=== PATIENT | male | born 1940 | race American Indian/Alaskan Native ===

== ENCOUNTER 2016-09-09 21:11 | Inpatient (IN) | payer MEDICARE ==
--- NOTE | 2016-09-09 22:19 | EDM.PDOC ---
ED HPI GENERAL MEDICAL PROBLEM - General Chief Complaint: Gastrointestinal Problem Stated Complaint: [facility] Time Seen by Provider: 09/09/16 21:41 Source of Information: Reports: Patient, RN Notes Reviewed History Limitations: Reports: No Limitations - History of Present Illness INITIAL COMMENTS - FREE TEXT/NARRATIVE: 76-year-old gentleman presents emergency department today with bright red blood per rectum as well as black tarry stools he states today is the first days of her had an event like this was scheduled to have a screening colonoscopy but never got that done denies any other symptoms denies pain Pain Score (Numeric/FACES): 0 - Related Data Allergies Allergy/AdvReac Type Severity Reaction Status Date / Time Penicillins Allergy Swelling Verified 09/09/16 21:25 Home Meds: Home Meds . [Unable to Verify Home Med List] 09/09/16 [History] Past Medical History HEENT History: Reports: Impaired Vision Cardiovascular History: Reports: Heart Failure Neurological History: Reports: Neuropathy, Diabetic Endocrine/Metabolic History: Reports: Diabetes, Type II - Infectious Disease History Infectious Disease History: Reports: Chicken Pox - Past Surgical History HEENT Surgical History: Reports: None Cardiovascular Surgical History: Reports: Coronary Artery Bypass, Valve Replacement Musculoskeletal Surgical History: Reports: Knee Replacement, Other (See Below) Other Musculoskeletal Surgeries/Procedures:: bilateral knee replacement Social & Family History - Tobacco Use Smoking Status *Q: Current Every Day Smoker Years of Tobacco use: 45 Packs/Tins Daily: 1.5 - Caffeine Use Caffeine Use: Reports: Coffee - Recreational Drug Use Recreational Drug Use: No ED ROS GENERAL - Review of Systems Review Of Systems: See Below Constitutional: Reports: No Symptoms HEENT: Reports: No Symptoms Respiratory: Reports: No Symptoms Cardiovascular: Reports: No Symptoms GI/Abdominal: Reports: Black Stool, Bloody Stool. Denies: Abdominal Pain, Nausea, Vomiting : Reports: No Symptoms Musculoskeletal: Reports: No Symptoms ED EXAM, GI/ABD - Physical Exam Exam: See Below Exam Limited By: No Limitations General Appearance: Alert, WD/WN, No Apparent Distress Throat/Mouth: Normal Oropharynx, No Airway Compromise Head: Atraumatic, Normocephalic Neck: Normal Inspection, Supple, Non-Tender, Full Range of Motion Respiratory/Chest: No Respiratory Distress, Lungs Clear, Normal Breath Sounds, No Accessory Muscle Use Cardiovascular: Regular Rate, Rhythm, No Murmur GI/Abdominal: Soft, Non-Tender Rectal (Males) Exam: Normal Exam, Prostate Normal, Black Stool, Heme + Stool. No: Hemorrhoids Course - Vital Signs Last Recorded V/S: Last Vital Signs Temp 97.7 F 09/09/16 21:14 Pulse 61 09/09/16 22:34 Resp 22 H 09/09/16 22:34 BP 145/64 H 09/09/16 22:34 Pulse Ox 91 L 09/09/16 22:34 - Orders/Labs/Meds Orders: Active Orders 24 hr Category Date Time Status Peripheral IV Care [RC] . DIRECTED Care 09/09/16 22:28 Active Pantoprazole [ProTONIX IV] 80 mg Med 09/09/16 22:30 Active Sodium Chloride 0.9% [Normal Saline] 100 ml IV .Continuous Sodium Chloride 0.9% [Saline Flush] Med 09/09/16 22:27 Active 10 ml FLUSH ASDIRECTED PRN Peripheral IV Insertion Adult [OM.PC] Urgent Oth 09/09/16 22:27 Ordered Medication Orders Pantoprazole Sodium 80 mg/ (Sodium Chloride) 100 mls @ 10 mls/hr IV .Continuous TAYLER Last Admin: 09/09/16 23:06 Dose: 10 mls/hr Sodium Chloride (Saline Flush) 10 ml FLUSH ASDIRECTED PRN PRN Reason: Keep Vein Open Last Admin: 09/09/16 23:05 Dose: 10 ml Labs: Laboratory Tests 09/09/16 09/09/16 09/09/16 Range/Units 22:40 22:40 22:40 WBC 7.9 (4.5-11.0) K/uL RBC 5.18 (4.30-5.90) M/uL Hgb 15.6 H (12.0-15.0) g/dL Hct 47.9 (40.0-54.0) % MCV 93 (80-98) fL MCH 30 (27-31) pg MCHC 33 (32-36) % Plt Count 207 (150-400) K/uL Neut % (Auto) 70 H (36-66) % Lymph % (Auto) 17 L (24-44) % [place] % (Auto) 10 H (2-6) % Eos % (Auto) 4 (2-4) % Baso % (Auto) 1 (0-1) % PT 46.8 H (9.5-12.0) sec INR 4.12 H* (0.80-1.20) Sodium 134 L (140-148) mmol/L Potassium 4.8 (3.6-5.2) mmol/L Chloride 100 (100-108) mmol/L Carbon Dioxide 32 (21-32) mmol/L Anion Gap 6.8 (5.0-14.0) mmol/L BUN 22 H (7-18) mg/dL Creatinine 1.5 H (0.8-1.3) mg/dL Est Cr Clr Drug Dosing 44.62 mL/min Estimated GFR (MDRD) 46 L (>60) Glucose 187 H (74-106) mg/dL Lactic Acid (0.4-2.0) mmol/L Calcium 7.9 L (8.5-10.1) mg/dL Total Bilirubin 0.5 (0.2-1.0) mg/dL AST 17 (15-37) U/L ALT 15 (12-78) U/L Alkaline Phosphatase 139 H (46-116) U/L Total Protein 7.2 (6.4-8.2) g/dL Albumin 2.8 L (3.4-5.0) g/dL Globulin 4.4 H (2.3-3.5) g/dL Albumin/Globulin Ratio 0.6 L (1.2-2.2) // Range/Units 22:40 WBC (4.5-11.0) K/uL RBC (4.30-5.90) M/uL Hgb (12.0-15.0) g/dL Hct (40.0-54.0) % MCV (80-98) fL MCH (27-31) pg MCHC (32-36) % Plt Count (150-400) K/uL Neut % (Auto) (36-66) % Lymph % (Auto) (24-44) % [place] % (Auto) (2-6) % Eos % (Auto) (2-4) % Baso % (Auto) (0-1) % PT (9.5-12.0) sec INR (0.80-1.20) Sodium (140-148) mmol/L Potassium (3.6-5.2) mmol/L Chloride (100-108) mmol/L Carbon Dioxide (21-32) mmol/L Anion Gap (5.0-14.0) mmol/L BUN (7-18) mg/dL Creatinine (0.8-1.3) mg/dL Est Cr Clr Drug Dosing mL/min Estimated GFR (MDRD) (>60) Glucose (74-106) mg/dL Lactic Acid 1.0 (0.4-2.0) mmol/L Calcium (8.5-10.1) mg/dL Total Bilirubin (0.2-1.0) mg/dL AST (15-37) U/L ALT (12-78) U/L Alkaline Phosphatase (46-116) U/L Total Protein (6.4-8.2) g/dL Albumin (3.4-5.0) g/dL Globulin (2.3-3.5) g/dL Albumin/Globulin Ratio (1.2-2.2) Meds: Medications Generic Name Dose Route Start Last Admin Trade Name Freq PRN Reason Stop Dose Admin Pantoprazole Sodium 80 mg/ 100 mls @ 10 mls/hr 09/09/16 22:30 09/09/16 23:06 Sodium Chloride IV 10 mls/hr .Continuous TAYLER Administration Sodium Chloride 10 ml 09/09/16 22:27 09/09/16 23:05 Saline Flush FLUSH 10 ml ASDIRECTED PRN Administration Keep Vein Open Discontinued Medications Generic Name Dose Route Start Last Admin Trade Name Freq PRN Reason Stop Dose Admin Hydrocodone Bitart/Acetaminophen 1 tab 09/09/16 23:37 [place] 325-5 Mg PO 09/09/16 23:38 ONETIME ONE Pantoprazole Sodium 40 mg 09/09/16 22:25 09/09/16 22:43 Protonix Iv IVPUSH 09/09/16 22:26 40 mg ONETIME ONE Administration Departure - Departure Time of Disposition: 23:44 Disposition: Admitted As Inpatient 66 Condition: Fair Clinical Impression: Gastrointestinal bleeding Qualifiers: GI bleed type/associated pathology: unspecified gastrointestinal hemorrhage type Qualified Code(s): K92.2 - Gastrointestinal hemorrhage, unspecified - Discharge Information Forms: ED Department Discharge - My Orders Last 24 Hours: My Active Orders 09/09/16 22:27 Sodium Chloride 0.9% [Saline Flush] 10 ml FLUSH ASDIRECTED PRN Peripheral IV Insertion Adult [OM.PC] Urgent 09/09/16 22:28 Peripheral IV Care [RC] . DIRECTED 09/09/16 22:30 Pantoprazole [ProTONIX IV] 80 mg Sodium Chloride 0.9% [Normal Saline] 100 ml IV .Continuous - Assessment/Plan Last 24 Hours: My Active Orders 09/09/16 22:27 Sodium Chloride 0.9% [Saline Flush] 10 ml FLUSH ASDIRECTED PRN Peripheral IV Insertion Adult [OM.PC] Urgent 09/09/16 22:28 Peripheral IV Care [RC] . DIRECTED 09/09/16 22:30 Pantoprazole [ProTONIX IV] 80 mg Sodium Chloride 0.9% [Normal Saline] 100 ml IV .Continuous Plan: Assessment Acuity = acute Site and laterality = GI bleed both black tarry stools and bright red blood complicated patient with known history of congestive heart failure, AV valve replacement on chronic anticoagulation and diabetes mellitus type 2 Etiology = supratherapeutic INR probably contributing to the cause Manifestations = none Location of injury = Home Lab values = hemoglobin stable at 15.6 INR supratherapeutic at 4.12 sodium low at 134 consistent hyponatremia creatinine elevated at 1.5 consistent chronic renal failure stage G IIIB albumin low at 2.8 consistent hypoalbuminemia Plan Discussed the case with Dr. Sauer admitting physician on-call he agreed to come and evaluate the patient in the hospital Patient was in agreement with the plan all questions were answered, they were instructed to return to the emergency department or call for worsening symptoms. This note was dictated using [employer] voice recognition software please call with any questions.
[2016-09-09] MEDS ORDERED: Pantoprazole 40 MG Vial IVPUSH ONE (22:25)
[2016-09-09] MEDS ORDERED: Sodium Chloride 0.9% 10 ML Syringe FLUSH PRN (22:27)
[2016-09-09] MEDS ORDERED: Pantoprazole 80 MG in Sodium Chloride 0.9% 100 ML IV SCH (22:30)
[2016-09-09] MEDS ORDERED: Acetaminophen/HYDROcodone 325-5 MG Tab PO ONE (23:37)
[2016-09-10] MEDS ORDERED: Sodium Chloride 0.9% 1,000 ML IV SCH (00:15)
[2016-09-10] MEDS ORDERED: Acetaminophen/HYDROcodone 325-10 MG Tab ONE (00:25)
[2016-09-10] MEDS ORDERED: Acetaminophen/HYDROcodone 325-10 MG Tab PO ONE (00:25)
[2016-09-10] MEDS ORDERED: Phytonadione 5 MG in Sodium Chloride 0.9% 50 ML IV ONE (01:17)
[2016-09-10] MEDS ORDERED: Acetaminophen/HYDROcodone 325-10 MG Tab PO SCH (01:30)
--- NOTE | 2016-09-10 04:08 | HP ---
IDENTIFYING DATA: Mr. Hair Cabrera is a 76-year-old, male from [facility]. CHIEF COMPLAINT: "I have bleeding in my stools." HISTORY OF PRESENT ILLNESS: A 76-year-old male with a recognized history of chronic ischemic heart disease, cardiac valve disease, and type 2 diabetes, noted passage of bloodied red stools at 1800 this evening. Ambulance Service was contacted and transported him to the emergency room for evaluation. He was admitted for ongoing monitoring of his GI bleed. He denies a history of previous or similar occurrence. Denies nausea, emesis, abdominal pain, dizziness, lightheadedness, or orthostasis. He has had no chronic abdominal complaints with the exception of intermittent constipation. He had passage of bloody stools reported and subsequent development of melena identified by ER physician. PAST MEDICAL HISTORY: Previous surgeries include coronary artery bypass graft and concurrent aortic valve replacement 22 years ago. Denies subsequent difficulty with cardiac symptoms or disease. Additional surgeries include bilateral cataract extraction and bilateral total knee arthroplasties. A 22-year history of type 2 diabetes with use of short and long-acting insulin. Denies other health problems. ALLERGIES: REPORTED TO PENICILLIN. MEDICATIONS: Unable to confirm. The patient reports his medications are set up by [facility] on a weekly basis. He does report he uses hydrocodone 10/325 t.i.d. and once p.r.n. for chronic neuropathic pain in lower extremities. Additionally, he uses Lantus by his report with a dose of 53 units b.i.d. and NovoLog 12 to 14 units at mealtime t.i.d. He is on Coumadin, monitored by Coumadin services at the [facility]. HABITS: Smoker of one pack per day. Caffeine intake of greater than 5 cups coffee daily. Denies alcohol use since his coronary artery bypass graft. Denies other illicit drug use. He reports he does receive annual influenza vaccines. Pneumococcal status is unknown. SOCIAL HISTORY: Currently residing with his son in [facility]. He no longer drives. He is retired. 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 Daughter lives in the nearby vicinity as well. FAMILY HISTORY: Unable to provide factual information, though believes family history is positive for diabetes and cardiac disease. REVIEW OF SYSTEMS: NEUROLOGIC: No history of strokes, seizures, diabetic retinopathy, or headaches. Denies glaucoma. Does have a long-standing history of diabetic neuropathy. CARDIAC: As above. Denies hypertension. Denies hyperlipidemia. GI: Denies peptic ulcer disease, previous ulcers, GI bleed, hepatitis, jaundice, gallbladder disease, or diarrhea. Constipation is managed with p.r.n. use of Senokot. : Rises once nightly to void. Denies known renal disease. MUSCULOSKELETAL: Previous bilateral total knee arthroplasties. No other arthritic complaints. PHYSICAL EXAMINATION: GENERAL: Appearance is that of an elderly male, in no acute distress. VITAL SIGNS: Temperature 97.7, pulse 61, respiratory rate 22, blood pressure 145/64, O2 sats 91% on room air. HEENT: Hearing is slightly diminished. Poor oral hygiene with dental caries. Oral mucosa is moist and pink. NECK: No adenopathy or thyromegaly. Brisk carotid pulses. No bruits. LUNGS: Resonant to percussion. Non-tachypneic. Expiratory rhonchi bilaterally. HEART: Regular without gallops. He has a metallic aortic closure and a grade 1 to 2 aortic outflow murmur identified. Controlled rate. ABDOMEN: Soft, nontender, and nondistended. Active sounds are heard. No obvious organomegaly or other unusual masses. No guarding, rebound, referred pain, or CVA tenderness. No abdominal bruits. Good femoral pulses. AND RECTAL: Omitted. EXTREMITIES: Diminished palpable pulses. Some skin atrophy of the lower extremities. No open skin lesions. NEUROLOGIC: Neuropathic sensory loss in the distal legs and feet bilaterally. LABORATORY DATA: On admission, WBC 7.9, hemoglobin 15.6, hematocrit 47.9, platelet count 207,000. INR is supratherapeutic at 4.12, ProTime 46.8. Sodium 134, potassium 4.8, BUN 22, creatinine 1.5, glucose 187. Calcium 7.9. Alkaline phosphatase 139, AST 17. Lactic acid 1. Stool was noted to be grossly melanotic on digital rectal exam done in the emergency room with positive occult blood. IMPRESSION: 1. Acute gastrointestinal bleed, likely upper gastrointestinal source, though has had reported passage of bloodied hematochezic stools as well. 2. Type 2 diabetes. 3. History of ischemic heart disease, status post CABG. 4. History of aortic valve disease, status post aortic valve replacement with chronic Coumadin anticoagulant therapy for reasons of mechanical valve. 5. Peripheral neuropathy. 6. Ongoing tobacco use. PLAN: The patient is admitted to the ICU for continued monitoring. Followup CBC, metabolic panel, and INR requested. We will provide a one time dose of vitamin K. IV fluids are in place. Monitor blood sugars t.i.d. and provide NovoLog insulin for blood sugars greater than 150 mg%. Lantus will be held. Pantoprazole IV infusion is initiated. We will require a followup endoscopic exam, likely need to study upper and lower GI tract given his presenting symptoms. Full code status will be maintained. We will continue with hydrocodone with acetaminophen use chronically for neuropathic pain. Anticipate hospital stay of less than 92 hours. Ryan Sauer MD /[id number]
[2016-09-10] MEDS ORDERED: Pantoprazole 80 MG in Sodium Chloride 0.9% 100 ML IV SCH (08:00)
[2016-09-10] MEDS ORDERED: Phytonadione 1 MG in Sodium Chloride 0.9% 50 ML IV ONE (08:00)
--- NOTE | 2016-09-10 08:29 | PN ---
DATE OF SERVICE: 09/10/2016 SUBJECTIVE: This 76-year-old diabetic male with a history of ischemic heart disease and aortic valve replacement with Coumadin anticoagulant therapy was admitted with an acute GI bleed noting hematochezia and melanotic stools. He has been comfortable through the night denying abdominal pain, dizziness, palpitations chest pain, shortness of breath, nausea or emesis. He had a melanotic appearing stool at the time of admission to the emergency room and has not had stooling since passing urine without difficulty. OBJECTIVE: VITAL SIGNS: Blood pressure 181/80, pulse 69, with sinus rhythm, respiratory rate 17, and O2 saturation 92%. NECK: Brisk, regular carotid pulses. No bruits or JVD. LUNGS: Clear and non tachypneic. HEART: Regular without gallops, grade 1 to 2 murmur again is noted with metallic aortic closure. ABDOMEN: Active sounds, nondistended. No guarding, rebound, or referred pain. No CVA tenderness. EXTREMITIES: Atrophic skin changes in the distal legs and chronic neuropathy. SKIN: [place] and dry. LABORATORY DATA: This morning, WBC 7.4, hemoglobin 16, and platelet count 193,000. Sodium 135, potassium 4.4, BUN 18, creatinine 1.3. Glucose 194, potassium 8.2, with administration of vitamin K, INR has dropped to 1.9. IMPRESSION AND PLAN: 1. Gastrointestinal bleed with Hemoccult positive stool. The patient reported earlier hematochezia as well. We will consult surgical services and request the esophagogastroduodenoscopy and colonoscopy on 09/11. Continue with clear liquid diet, vitamin K. IV provided today with followup INR and CBC. 2. History of type 2 diabetes. Continue with glucose monitoring short-acting insulin administration and clear liquids, long-acting Lantus has been held. 3. History of ischemic heart disease, and aortic valve replacement. Coumadin anticoagulant therapy has been interrupted. We will continue with metoprolol therapies for blood pressure management as well as magnesium supplementation. Furosemide and hydralazine have been held. 4. Chronic neuropathy of the lower extremities secondary to diabetes. His scheduled hydrocodone with acetaminophen has been ordered. The patient reports he has not been using previously provided gabapentin and Lidoderm. Ryan Sauer MD /[id number]
[2016-09-10] MEDS: Insulin Aspart 100 Units/ML 3 ML Pen SUBCUT SCH ×4 (08:32→17:37)
[2016-09-10] MEDS: Magnesium Oxide 400 MG Tab PO SCH ×2 (08:39→20:48)
[2016-09-10] MEDS: Metoprolol Succinate 25 MG Tab.ER PO SCH (08:39)
[2016-09-10] MEDS: Isosorbide Dinitrate 10 MG Tab PO SCH ×3 (08:40→20:45)
[2016-09-10] MEDS ORDERED: Insulin Aspart 100 Units/ML 3 ML Pen SUBCUT SCH (11:22)
[2016-09-10] MEDS: Acetaminophen/HYDROcodone 325-10 MG Tab PO SCH ×3 (11:29→21:54)
[2016-09-10] MEDS ORDERED: Nicotine 14 MG/24 Hr Patch TRDERM ONE (13:00)
[2016-09-10] MEDS ORDERED: Warfarin 5 MG Tab PO ONE (13:00)
[2016-09-10] MEDS: Acetaminophen/HYDROcodone 325-10 MG Tab PO PRN (17:42)
[2016-09-10] MEDS ORDERED: atorvaSTATin 20 MG Tab PO SCH (21:00)
[2016-09-10] MEDS ORDERED: Insulin Detemir 100 Units/ML 3 ML Pen SUBCUT SCH (21:00)
[2016-09-11] MEDS: Acetaminophen/HYDROcodone 325-10 MG Tab PO PRN (02:08)
[2016-09-11] MEDS ORDERED: Gabapentin 300 MG Cap PO ONE (03:13)
[2016-09-11] MEDS: Acetaminophen/HYDROcodone 325-10 MG Tab PO SCH (08:20)
[2016-09-11] MEDS: Magnesium Oxide 400 MG Tab PO SCH (08:21)
[2016-09-11] MEDS: Metoprolol Succinate 25 MG Tab.ER PO SCH (08:21)
[2016-09-11] MEDS: Isosorbide Dinitrate 10 MG Tab PO SCH (08:22)
[2016-09-11] MEDS: Insulin Aspart 100 Units/ML 3 ML Pen SUBCUT SCH ×2 (08:25→12:15)
[2016-09-11 08:57] VITALS: BP 142/95
[2016-09-11] MEDS ORDERED: Nicotine 14 MG/24 Hr Patch TRDERM SCH (09:00)
[2016-09-11] MEDS ORDERED: Enoxaparin 100 MG/1 ML Syringe SUBCUT ONE (09:09)
[2016-09-11] MEDS ORDERED: Gabapentin 300 MG Cap PO SCH (10:00)
[2016-09-11] MEDS ORDERED: Sertraline 50 MG Tab PO SCH (10:00)
--- NOTE | 2016-09-11 10:55 | PCM.DCSUM1 ---
Discharge Summary - Hospital Course Brief History: 76-year-old male with insulin-dependent diabetes and tobacco dependence as well as chronic warfarin use because of a mechanical heart valve who presented with 2 episodes of hematochezia. He was admitted for management and further workup. - Discharge Data Discharge Date: 09/11/16 Discharge Disposition: Home, [place] [id number] Condition: Good - Discharge Diagnosis/Problem(s) (1) Hematochezia SNOMED Code(s): 091191820 ICD Code: K92.1 - MELENA Status: Acute (2) Supratherapeutic INR SNOMED Code(s): 941929659, 711403345 ICD Code: R79.1 - ABNORMAL COAGULATION PROFILE Status: Acute (3) Diabetes mellitus SNOMED Code(s): 52124123 ICD Code: E11.9 - TYPE 2 DIABETES MELLITUS WITHOUT COMPLICATIONS Status: Chronic Qualifiers: Diabetes mellitus type: type 2 Diabetes mellitus complication status: with neurologic complications Diabetes mellitus complication detail: with polyneuropathy Diabetes mellitus intermediate insulin use: with intermediate use Qualified Code(s): E11.42 - Type 2 diabetes mellitus with diabetic polyneuropathy; Z79.4 - terminal carman (current) use of insulin (4) Tobacco dependence SNOMED Code(s): 46035255 ICD Code: F17.200 - NICOTINE DEPENDENCE, UNSPECIFIED, UNCOMPLICATED Status : Chronic - Patient Summary/Data Consults: Consultations 09/10/16 07:18 Consult to Physician [CONS] Routine Consulting Provider: David Guzman Call Completed to Consulting Physician: Yes: Dr Sauer to call Reason for Consult: gi bleed Person Notified: Thomas Date Notified: 09/10/16 Time Notified: 07:22 Hospital Course: Hair presented to the emergency room after an episode of hematochezia. He had a second episode in the emergency room. Workup at that time was otherwise unremarkable. He was admitted for further workup and management. He was noted to have a supratherapeutic INR at the time of presentation and was given a dose of IV vitamin K. By the morning after admission he has not had any recurrent episodes of bleeding. His INR is down to 1.9. His vital signs have been stable and repeat hemoglobin level is unchanged from admission. The morning after admission we did discuss the potential for further workup such as colonoscopy and potentially upper endoscopy versus monitoring now that his INR is back in the therapeutic range. He has had recent FIT testing which was negative. This was done within the last year. I suspect that his bleeding was coming from a diverticular source and with no active bleeding our chances of finding a source are very low. Ultimately we elected to avoid a colonoscopy at this time given that the bleeding had stopped. we monitored one additional night and there is no evidence for ongoing hematochezia. He did have one normal bowel movement overnight prior to discharge. A third hemoglobin level was obtained the morning of discharge and that remained stable at 15.8. I believe he is safe for outpatient management at this time. He will be discharged home with no changes in his medications. After receiving the dose of vitamin K he did have a subtherapeutic INR level and did receive a 1.5 mg/kg dose of enoxaparin to help bridge until his INR is therapeutic. He will maintain his usual home health nursing follow-up. Further testing with endoscopy could be considered if he has additional episodes of bleeding. I suspect this episode was related to mild diverticular bleeding in the setting of a supratherapeutic INR. - Patient Instructions Diet: Diabetic Diet Activity: As Tolerated Driving: May Drive Today Showering/Bathing: May Shower Notify Provider of: Fever, Increased Pain, Nausea and/or Vomiting Other/Special Instructions: 1. You wording hospital for management of rectal bleeding. I suspect this was caused by a combination of a supratherapeutic INR ( warfarin level too high/blood too thin) and possibly an inflamed blood vessel near a diverticulum (pouch from a weak area in your colon wall). we did use a medication to reverse the effects of warfarin. I have given you 2 doses of warfarin that are larger than normal to help get your blood levels of the warfarin back to the desired range as well as an injection of a blood thinning medication under your skin to help bridge until your warfarin levels are therapeutic again. 2. I would recommend that you notify your home health nurse who monitors your warfarin level that your INR level was greater than 4 when you were admitted to the hospital Saturday night. 3. Please continue your usual home medications as previously prescribed. 4. Please resume your usual home health nursing orders. 5. Please seek medical attention if you have recurrence of your bleeding, develop severe abdominal pain or become dizzy/lightheaded or feel like you are going to pass out. - Discharge Plan Home Medications: Home Meds Ergocalciferol (Vitamin D2) [Vitamin D2] 1 tab PO WEEKLY 09/10/16 [History] Furosemide 40 mg PO DAILY 09/10/16 [History] Gabapentin [Neurontin] 300 mg PO BID 09/10/16 [History] Gabapentin [Neurontin] 900 mg PO BEDTIME 09/10/16 [History] Hydrocodone/Acetaminophen [Hydrocodon-Acetaminophn 10-325] 1 tab PO QID PRN [History] Insulin Aspart [NovoLOG] 14 units SQ TIDMEALS 09/10/16 [History] Insulin Detemir [Levemir] 50 units SQ DAILY 09/10/16 [History] Isosorbide Dinitrate 20 mg PO TID 09/10/16 [History] Lidocaine/Menthol [Lidopatch] 2 patch TOP DAILY 09/10/16 [History] Magnesium Oxide [Mgo] 400 mg PO BID 09/10/16 [History] Metoprolol Succinate [Toprol XL] 25 mg PO DAILY 09/10/16 [History] Sennosides 8.6 mg PO BID 09/10/16 [History] Sertraline [Zoloft] 150 mg PO DAILY 09/10/16 [History] Simethicone 80 mg PO ASDIRECTED 09/10/16 [History] Warfarin Sliding Scale [Coumadin Sliding Scale] 3 mg PO DAILY 09/10/16 [History] atorvaSTATin Calcium [Atorvastatin Calcium] 40 mg PO DAILY 09/10/16 [History] hydrALAZINE [Apresoline] 25 mg PO TID 09/10/16 [History] Patient Handouts: Warfarin tablets, Gastrointestinal Bleeding, [id number] Referrals: PCP,None [Ordering Only Provider] - (f/u with your primary care as needed if you have recurrence of your bleeding) - Discharge Summary/Plan Comment DC Time >30 min.: No - Patient Data Vitals - Most Recent: Last Vital Signs Temp 36.8 C 09/11/16 07:00 Pulse 75 09/11/16 08:21 Resp 18 09/11/16 07:00 BP 178/94 H 09/11/16 08:22 Pulse Ox 93 L 09/11/16 07:00 Weight - Most Recent: 91.172 kg I&O - Last 24 hours: Intake & Output 09/10/16 09/11/16 09/11/16 22:59 06:59 14:59 Intake Total 1580 480 240 Balance 1580 480 240 Lab Results - Last 24 hrs: Laboratory Results - last 24 hr 09/11/16 09/11/16 09/11/16 Range/Units 06:00 06:00 06:00 WBC 8.3 (4.5-11.0) K/uL RBC 5.24 (4.30-5.90) M/uL Hgb 15.8 H (12.0-15.0) g/dL Hct 47.0 (40.0-54.0) % MCV 90 (80-98) fL MCH 30 (27-31) pg MCHC 34 (32-36) % Plt Count 193 (150-400) K/uL PT 14.6 H (9.5-12.0) sec INR 1.35 H (0.80-1.20) Sodium 132 L (140-148) mmol/L Potassium 4.1 (3.6-5.2) mmol/L Chloride 97 L (100-108) mmol/L Carbon Dioxide 30 (21-32) mmol/L Anion Gap 9.1 (5.0-14.0) mmol/L BUN 16 (7-18) mg/dL Creatinine 1.0 (0.8-1.3) mg/dL Est Cr Clr Drug Dosing 66.66 mL/min Estimated GFR (MDRD) > 60 (>60) Glucose 154 H (74-106) mg/dL Calcium 8.4 L (8.5-10.1) mg/dL Med Orders - Current: Current Medications Hydrocodone Bitart/Acetaminophen ([place] 325-10 Mg) 1 tab PO TID [facility] Last Admin: 09/11/16 08:20 Dose: 1 tab Hydrocodone Bitart/Acetaminophen ([place] 325-10 Mg) 1 tab PO DAILY PRN PRN Reason: NEUROPATHY Last Admin: 09/11/16 02:08 Dose: 1 tab Atorvastatin Calcium (Lipitor) 40 mg PO BEDTIME [facility] Last Admin: 09/10/16 20:48 Dose: 40 mg Gabapentin (Neurontin) 300 mg PO BID@0800,1400 [facility] Hydralazine HCl (Apresoline) 25 mg PO TID [facility] Insulin Aspart (Novolog) 10 unit SUBCUT TIDAC [facility] Last Admin: 09/11/16 08:25 Dose: Not Given Insulin Detemir (Levemir) 50 unit SUBCUT BEDTIME [facility] Last Admin: 09/10/16 20:46 Dose: 50 units Isosorbide Dinitrate (Isordil) 20 mg PO TID [facility] Last Admin: 09/11/16 08:22 Dose: 20 mg Magnesium Oxide (Magnesium Oxide) 400 mg PO BID [facility] Last Admin: 09/11/16 08:21 Dose: 400 mg Metoprolol Succinate (Toprol Xl) 25 mg PO DAILY [facility] Last Admin: 09/11/16 08:21 Dose: 25 mg Nicotine (Habitrol) 14 mg TRDERM DAILY [facility] Last Admin: 09/11/16 08:23 Dose: Not Given Sertraline HCl (Zoloft) 150 mg PO DAILY [facility] Sodium Chloride (Saline Flush) 10 ml FLUSH ASDIRECTED PRN PRN Reason: Keep Vein Open Last Admin: 09/09/16 23:05 Dose: 10 ml Warfarin Sodium (Coumadin) 5 mg PO ONETIME ONE Stop: 09/11/16 12:01 Discontinued Medications Hydrocodone Bitart/Acetaminophen ([place] 325-5 Mg) 1 tab PO ONETIME ONE Stop: 09/09/16 23:38 Last Admin: 09/10/16 00:32 Dose: Not Given Hydrocodone Bitart/Acetaminophen ([place] 325-10 Mg) 1 tab PO ONETIME ONE Stop: 09/10/16 00:26 Last Admin: 09/10/16 00:27 Dose: 1 tab Hydrocodone Bitart/Acetaminophen ([place] 325-10 Mg) Confirm Administered Dose 1 tab .ROUTE .STK-MED ONE Stop: 09/10/16 00:26 Last Admin: 09/10/16 00:28 Dose: Not Given Hydrocodone Bitart/Acetaminophen ([place] 325-10 Mg) 0 tab PO ONETIME [facility] Last Admin: 09/10/16 05:39 Dose: 1 tab Enoxaparin Sodium 100 mg/ (Enoxaparin Sodium 40 mg) 140 mg SUBCUT ONETIME ONE Stop: 09/11/16 10:01 Gabapentin (Neurontin) 900 mg PO ONETIME ONE Stop: 09/11/16 03:14 Last Admin: 09/11/16 03:32 Dose: 900 mg Pantoprazole Sodium 80 mg/ (Sodium Chloride) 100 mls @ 10 mls/hr IV .Continuous [facility] Last Admin: 09/09/16 23:06 Dose: 10 mls/hr Sodium Chloride (Normal Saline) 1,000 mls @ 25 mls/hr IV ASDIRECTED [facility] Last Admin: 09/10/16 00:28 Dose: 25 mls/hr Phytonadione 5 mg/ Sodium (Chloride) 50.5 mls @ 100 mls/hr IV NOW ONE Stop: 09/10/16 01:47 Last Admin: 09/10/16 01:55 Dose: 100 mls/hr Phytonadione 1 mg/ Sodium (Chloride) 50.5 mls @ 100 mls/hr IV ONETIME ONE Stop: 09/10/16 08:30 Last Admin: 09/10/16 17:03 Dose: Not Given Pantoprazole Sodium 80 mg/ (Sodium Chloride) 100 mls @ 10 mls/hr IV Q10H [facility] Last Admin: 09/10/16 08:12 Dose: 10 mls/hr Insulin Aspart (Novolog) 5 unit SUBCUT TIDAC [facility] Last Admin: 09/10/16 17:04 Dose: Not Given Nicotine (Habitrol) 14 mg TRDERM ONETIME ONE Stop: 09/10/16 13:01 Last Admin: 09/10/16 14:02 Dose: 14 mg Pantoprazole Sodium (Protonix Iv) 40 mg IVPUSH ONETIME ONE Stop: 09/09/16 22:26 Last Admin: 09/09/16 22:43 Dose: 40 mg Warfarin Sodium (Coumadin) 5 mg PO ONETIME ONE Stop: 09/10/16 13:01 Last Admin: 09/10/16 14:01 Dose: 5 mg *Q Meaningful Use (DIS) - VTE *Q VTE Criteria *Q: - Stroke *Q Stroke Criteria *Q: - AMI *Q AMI Criteria *Q:
[2016-09-11] MEDS ORDERED: Warfarin 5 MG Tab PO ONE (12:00)
[2016-09-11] MEDS ORDERED: hydrALAZINE 25 MG Tab PO SCH (14:00)
== END 2016-09-11 12:24 | disposition home health service (06) | DRG 379 ==
LOC: JP.ED 21:11 → JP.ICU 23:46 → JP.MS 09-10 16:11
PROVIDERS: ADMIT Family Medicine; ATTEND Family Medicine
DX: K92.2 Gastrointestinal hemorrhage, unspecified (principal); K92.1 Melena; E11.42 Type 2 diabetes mellitus with diabetic polyneuropathy; Z79.4 Long term (current) use of insulin; F17.200 Nicotine dependence, unspecified, uncomplicated; Z95.2 Presence of prosthetic heart valve; Z95.1 Presence of aortocoronary bypass graft; I25.10 Atherosclerotic heart disease of native coronary artery without angina pectoris
CPT/HCPCS: 36415; 80053; 82272; 83605; 85025; 85610; 96365; 99285; C9113 ×2; J7030; J7050; 80048; 82962; 85027; A9270-GY; J3430; J7040

== ENCOUNTER 2017-02-20 07:27 | Emergency (ER) | payer MEDICAID, MEDICARE ==
[2017-02-20 07:38] VITALS: BP 154/82
--- NOTE | 2017-02-20 07:44 | EDM.PDOC ---
ED HPI GENERAL MEDICAL PROBLEM - General Chief Complaint: Upper Extremity Injury/Pain Stated Complaint: ARM PAIN Time Seen by Provider: 02/20/17 07:35 Source of Information: Reports: Patient History Limitations: Reports: Other (patient not a good historian, no available records.) - History of Present Illness INITIAL COMMENTS - FREE TEXT/NARRATIVE: 76 yo male was seen in [place], [place] for L elbow pain after falling last night about 7 pm on his dog. They assessed him in [place] and found that he had no fx's, but were transferring him to [place] to see orthopedics. The ambulance broke down en route to [place] and the patient was brought here to stay warm while waiting for a back up rig. Apparently, he needed to now register and be seen here since he is in our department. Patient has been medicated for pain and has stable vital signs per EMS and this has been substantiated per our nursing staff. Onset: Other (Fell last night.) Onset Date: 02/19/17 Onset Time: 19:00 Duration: Hour(s):, Constant Location: Reports: Upper Extremity, Left Quality: Reports: Ache Severity: Mild Improves with: Reports: Rest Worsens with: Reports: Movement Context: Reports: Trauma Associated Symptoms: Reports: No Other Symptoms Treatments PROPERTY MANAGEMENT SPECIALIST: Reports: Other (see below) (EMS administered Fentanyl.) Left Elbow Pain Score (Numeric/FACES): 10 - Related Data Allergies Allergy/AdvReac Type Severity Reaction Status Date / Time Penicillins Allergy Swelling Verified 09/09/16 21:25 Home Meds: Home Meds Ergocalciferol (Vitamin D2) [Vitamin D2] 1 tab PO WEEKLY 09/10/16 [History] Furosemide 40 mg PO DAILY 09/10/16 [History] Gabapentin [Neurontin] 300 mg PO BID 09/10/16 [History] Gabapentin [Neurontin] 900 mg PO BEDTIME 09/10/16 [History] Hydrocodone/Acetaminophen [Hydrocodon-Acetaminophn 10-325] 1 tab PO QID PRN [History] Insulin Aspart [NovoLOG] 14 units SQ TIDMEALS 09/10/16 [History] Insulin Detemir [Levemir] 50 units SQ DAILY 09/10/16 [History] Isosorbide Dinitrate 20 mg PO TID 09/10/16 [History] Lidocaine/Menthol [Lidopatch] 2 patch TOP DAILY 09/10/16 [History] Magnesium Oxide [Mgo] 400 mg PO BID 09/10/16 [History] Metoprolol Succinate [Toprol XL] 25 mg PO DAILY 09/10/16 [History] Sennosides 8.6 mg PO BID 09/10/16 [History] Sertraline [Zoloft] 150 mg PO DAILY 09/10/16 [History] Simethicone 80 mg PO ASDIRECTED 09/10/16 [History] Warfarin Sliding Scale [Coumadin Sliding Scale] 3 mg PO DAILY 09/10/16 [History] atorvaSTATin Calcium [Atorvastatin Calcium] 40 mg PO DAILY 09/10/16 [History] hydrALAZINE [Apresoline] 25 mg PO TID 09/10/16 [History] Past Medical History HEENT History: Reports: Cataract, Impaired Vision, Other (See Below) Other HEENT History: diabetic retinopathy Cardiovascular History: Reports: Bypass, Heart Failure, Heart Valve Replacement , High Cholesterol, Hypertension, Other (See Below) Other Cardiovascular History: mitral valve prosthesis Respiratory History: Reports: Other (See Below) Other Respiratory History: pulmonary nodules. hx hemoptysis Gastrointestinal History: Reports: Chronic Constipation Genitourinary History: Reports: Renal Disease Other Genitourinary History: CKD Musculoskeletal History: Reports: Osteoarthritis Neurological History: Reports: Neuropathy, Diabetic Psychiatric History: Reports: Depression Endocrine/Metabolic History: Reports: Diabetes, Type II - Infectious Disease History Infectious Disease History: Reports: Chicken Pox - Past Surgical History HEENT Surgical History: Reports: Cataract Surgery, Eye Surgery Cardiovascular Surgical History: Reports: Coronary Artery Bypass, Valve Replacement Musculoskeletal Surgical History: Reports: Knee Replacement, Other (See Below) Other Musculoskeletal Surgeries/Procedures:: bilateral knee replacement Social & Family History - Tobacco Use Smoking Status *Q: Current Every Day Smoker Years of Tobacco use: 45 Packs/Tins Daily: 1.5 - Caffeine Use Caffeine Use: Reports: Coffee - Recreational Drug Use Recreational Drug Use: No Review of Systems - Review of Systems Review Of Systems: ROS reveals no pertinent complaints other than HPI. ED EXAM, GENERAL - Physical Exam Exam: See Below Exam Limited By: No Limitations General Appearance: Alert, WD/WN, No Apparent Distress Extremities: Other (L elbow in a sling. No bleeding. Patient is comfortable with the arm immobilized.). No: Redness Neurological: Alert, Oriented, CN II-XII Intact, Normal Cognition, Normal Gait Psychiatric: Normal Affect, Normal Mood Skin Exam: Warm, Dry, Intact, Normal Color, No Rash Course - Vital Signs Last Recorded V/S: Last Vital Signs Temp 35.7 C 02/20/17 07:33 Pulse 74 02/20/17 07:33 Resp 16 02/20/17 07:33 BP 154/82 H 02/20/17 07:33 Pulse Ox 98 02/20/17 07:33 Departure - Departure Time of Disposition: 07:48 Disposition: DC/Tfer to [facility] 02 Clinical Impression: Medically suitable to undergo surgery Injury of left elbow Qualifiers: Encounter type: initial encounter Qualified Code(s): S59.902A - Unspecified injury of left elbow, initial encounter - Discharge Information Referrals: PCP,None [Primary Care Provider] -
== END 2017-02-20 07:55 ==
LOC: EEVIPCON 07:27 → JP.ED 07:27
DX: S59.902A Unspecified injury of left elbow, initial encounter (principal); I50.9 Heart failure, unspecified; E78.00 Pure hypercholesterolemia, unspecified; E11.22 Type 2 diabetes mellitus with diabetic chronic kidney disease; N18.9 Chronic kidney disease, unspecified; E11.40 Type 2 diabetes mellitus with diabetic neuropathy, unspecified; Z88.0 Allergy status to penicillin; Z79.899 Other long term (current) drug therapy; Z79.4 Long term (current) use of insulin; Z79.01 Long term (current) use of anticoagulants; F17.210 Nicotine dependence, cigarettes, uncomplicated; W01.0XXA Fall on same level from slipping, tripping and stumbling without subsequent striking against object, initial encounter
CPT/HCPCS: 99284